=== PATIENT | female | born 1945 | race Caucasian/White ===

== ENCOUNTER 2017-09-29 09:28 | Inpatient (IN) | payer OTHER ==
[~2017-09-29] VITALS: Ht 157.5 cm; Wt 72.6 kg
[~2017-09-29 09:28] MED LIST: AMOX1TAB12 PO; AMOX1TAB5 PO; ATENOLOL25 MG PO; AVALIDE 300-12.1 TA1 PO; BUDESONIDE; CARDIZEM30 MG PO; COZAAR50 MG; DILTIAZEM HCL30 MG PO; FOLIC ACID1 MG PO; HYZAAR 100-121 UDTAB; HYZAAR 100-121 UDTAB PO; IMDUR30 MG; IMDUR30 MG PO; INTEGRA CAPSUL1 EACH PO; INTEGRA F CAPS1 EACH PO; LEVAQUIN750 MG PO; MUCINEX D1 TAB.SR . PO; Neurin-Sl Tablet Sl SL; Neurontin PO; ORPH100T PO; PREVACID15 MG; PRILOSEC20 MG PO; PROTONIX20 MG; PROTONIX20 MG PO; PROTONIX40 MG PO; QUESTRAN PACKET4 GM PO; SINGULAIR 10MG10 MG PO; SINGULAIR10 MG PO; TESSALON PERLE100 M1 PO; TRAM1TAB98 PO; ULTRACET PO; ULTRAM50 MG PO; ZITHROMAX PO; ZITHROMAX TRI-500 MG PO; ZOVIRAX15 GM TP; ZYRTEC10 M3 PO; [UNRECOGNIZED DRUG - OTHER]; [UNRECOGNIZED DRUG - OTHER]; [UNRECOGNIZED DRUG - OTHER]; [UNRECOGNIZED DRUG - OTHER]; [UNRECOGNIZED DRUG - REMARK]
== END 2017-10-01 12:43 | disposition home or self-care (01) | DRG 378 ==
LOC: ER 09:28 → MEDI 15:20
PROC: 30233N1 Transfusion of Nonautologous Red Blood Cells into Peripheral Vein, Percutaneous Approach (ICD-10-PCS; principal; 2017-09-30)
PROC: 3E0F7GC Introduction of Other Therapeutic Substance into Respiratory Tract, Via Natural or Artificial Opening (ICD-10-PCS; 2017-09-30)
DX: K55.21 Angiodysplasia of colon with hemorrhage (principal); J45.31 Mild persistent asthma with (acute) exacerbation; D50.0 Iron deficiency anemia secondary to blood loss (chronic); D69.59 Other secondary thrombocytopenia; B18.2 Chronic viral hepatitis C; K74.69 Other cirrhosis of liver; I10 Essential (primary) hypertension

== ENCOUNTER 2017-10-06 11:45 | Outpatient (CLI) | payer OTHER | END 2017-10-06 11:51 | disposition home or self-care (01) | LOC: LAB 11:45 | DX: D50.0 Iron deficiency anemia secondary to blood loss (chronic) (principal); D51.8 Other vitamin B12 deficiency anemias; D69.49 Other primary thrombocytopenia; B18.2 Chronic viral hepatitis C; K74.69 Other cirrhosis of liver; M81.0 Age-related osteoporosis without current pathological fracture; M19.90 Unspecified osteoarthritis, unspecified site; D53.8 Other specified nutritional anemias; D50.8 Other iron deficiency anemias; I10 Essential (primary) hypertension ==

== ENCOUNTER 2017-10-19 10:11 | Emergency (ER) | payer OTHER ==
[~2017-10-19] VITALS: Ht 157.5 cm; Wt 72.6 kg
== END 2017-10-19 15:29 | disposition home or self-care (01) ==
LOC: ER 10:11
DX: J06.9 Acute upper respiratory infection, unspecified (principal); J00 Acute nasopharyngitis [common cold]; R06.02 Shortness of breath; J11.1 Influenza due to unidentified influenza virus with other respiratory manifestations

== ENCOUNTER → 2017-10-23 | Emergency (ER) | payer OTHER ==
[~2017-10-23] VITALS: Ht 157.5 cm; Wt 72.6 kg
== END | disposition left against medical advice (07) ==
LOC: ER 17:22
DX: Z53.20 Procedure and treatment not carried out because of patient's decision for unspecified reasons (principal)

== ENCOUNTER 2017-11-14 08:43 | Emergency (ER) | payer OTHER ==
[~2017-11-14] VITALS: Ht 157.5 cm; Wt 72.6 kg
== END 2017-11-14 12:32 ==
LOC: ER 08:43
DX: J45.901 Unspecified asthma with (acute) exacerbation (principal)

== ENCOUNTER 2017-12-22 12:42 | Inpatient (IN) | payer OTHER ==
[~2017-12-22] VITALS: Ht 154.9 cm; Wt 72.6 kg
== END 2017-12-23 14:10 | disposition home or self-care (01) | DRG 379 ==
LOC: ER 12:42 → MEDJ 20:57
PROC: 30233N1 Transfusion of Nonautologous Red Blood Cells into Peripheral Vein, Percutaneous Approach (ICD-10-PCS; principal; 2017-12-22)
DX: K92.2 Gastrointestinal hemorrhage, unspecified (principal); D50.0 Iron deficiency anemia secondary to blood loss (chronic); K74.69 Other cirrhosis of liver; B19.20 Unspecified viral hepatitis C without hepatic coma; I95.89 Other hypotension

== ENCOUNTER 2018-01-30 10:23 | Outpatient (CLI) | payer OTHER | END 2018-01-30 13:03 | disposition home or self-care (01) | LOC: LAB 10:23 | DX: D50.0 Iron deficiency anemia secondary to blood loss (chronic) (principal); D51.8 Other vitamin B12 deficiency anemias; D69.49 Other primary thrombocytopenia; B18.2 Chronic viral hepatitis C; K74.69 Other cirrhosis of liver; M81.0 Age-related osteoporosis without current pathological fracture; M19.90 Unspecified osteoarthritis, unspecified site; D53.8 Other specified nutritional anemias; D50.8 Other iron deficiency anemias; I10 Essential (primary) hypertension ==

== ENCOUNTER 2018-03-03 10:31 | Outpatient (CLI) | payer OTHER | END 2018-03-03 10:41 | disposition home or self-care (01) | LOC: MAMO-SONO 10:31 | DX: Z12.31 Encounter for screening mammogram for malignant neoplasm of breast (principal); Z87.898 Personal history of other specified conditions; N64.4 Mastodynia ==

== ENCOUNTER → 2018-03-03 | Emergency (ER) | payer OTHER ==
[~2018-03-03] VITALS: Ht 152.4 cm; Wt 74.8 kg
== END | disposition home or self-care (01) ==
LOC: ER 12:14
DX: K62.5 Hemorrhage of anus and rectum (principal); E86.0 Dehydration

== ENCOUNTER → 2018-05-18 | Outpatient (CLI) | payer OTHER ==
[~2018-05-18] MED LIST changes: +METOPROLOL SUCC25 MG PO; +SYNTHROID50 MCG PO
== END | disposition home or self-care (01) ==
LOC: LAB 08:07
DX: R73.09 Other abnormal glucose (principal); I10 Essential (primary) hypertension; E03.8 Other specified hypothyroidism

== ENCOUNTER 2018-06-01 07:55 | Inpatient (IN) | payer OTHER ==
[~2018-06-01] VITALS: Ht 157.5 cm; Wt 77.1 kg
[~2018-06-01 07:55] MED LIST changes: -METOPROLOL SUCC25 MG PO; -SYNTHROID50 MCG PO
[2018-06-01] MEDS ORDERED: METOPROLOL SUCC25 MG PO (08:09)
[2018-06-01] MEDS ORDERED: SYNTHROID50 MCG PO (08:10)
== END 2018-06-07 09:59 | disposition left against medical advice (07) | DRG 377 ==
LOC: ER 07:55 → MEDJ 11:36 → SEC-K 11:36 → MEDJ 13:23 → ICU-2 13:58 → MEDI 06-03 11:14
PROC: 30233N1 Transfusion of Nonautologous Red Blood Cells into Peripheral Vein, Percutaneous Approach (ICD-10-PCS; principal; 2018-06-01)
PROC: BW25Y0Z Computerized Tomography (CT Scan) of Chest, Abdomen and Pelvis using Other Contrast, Unenhanced and Enhanced (ICD-10-PCS; 2018-06-01)
PROC: 0DB68ZX Excision of Stomach, Via Natural or Artificial Opening Endoscopic, Diagnostic (ICD-10-PCS; 2018-06-02)
PROC: CD171ZZ Planar Nuclear Medicine Imaging of Gastrointestinal Tract using Technetium 99m (Tc-99m) (ICD-10-PCS; 2018-06-02)
PROC: 0DBN8ZX Excision of Sigmoid Colon, Via Natural or Artificial Opening Endoscopic, Diagnostic (ICD-10-PCS; 2018-06-03)
PROC: 3E0F7GC Introduction of Other Therapeutic Substance into Respiratory Tract, Via Natural or Artificial Opening (ICD-10-PCS; 2018-06-03)
PROC: 4A033R1 Measurement of Arterial Saturation, Peripheral, Percutaneous Approach (ICD-10-PCS; 2018-06-04)
PROC: 4A12X4Z Monitoring of Cardiac Electrical Activity, External Approach (ICD-10-PCS; 2018-06-04)
PROC: 5A09457 Assistance with Respiratory Ventilation, 24-96 Consecutive Hours, Continuous Positive Airway Pressure (ICD-10-PCS; 2018-06-04)
PROC: BW40ZZZ Ultrasonography of Abdomen (ICD-10-PCS; 2018-06-05)
DX: K55.21 Angiodysplasia of colon with hemorrhage (principal); R57.1 Hypovolemic shock; D62 Acute posthemorrhagic anemia; R78.81 Bacteremia; N39.0 Urinary tract infection, site not specified; J98.11 Atelectasis; K74.69 Other cirrhosis of liver; B18.2 Chronic viral hepatitis C; D69.59 Other secondary thrombocytopenia; I10 Essential (primary) hypertension; J45.998 Other asthma; E86.0 Dehydration; B95.61 Methicillin susceptible Staphylococcus aureus infection as the cause of diseases classified elsewhere; B96.29 Other Escherichia coli [E. coli] as the cause of diseases classified elsewhere; Z16.12 Extended spectrum beta lactamase (ESBL) resistance; K63.5 Polyp of colon; R06.02 Shortness of breath

== ENCOUNTER 2018-06-23 08:07 | Outpatient (CLI) | payer OTHER ==
[~2018-06-23 08:07] MED LIST changes: +METOPROLOL SUCC25 MG PO; +SYNTHROID50 MCG PO
== END 2018-06-23 08:19 | disposition home or self-care (01) ==
LOC: LAB 08:07
DX: D50.0 Iron deficiency anemia secondary to blood loss (chronic) (principal)

== ENCOUNTER 2018-07-20 07:42 | Outpatient (CLI) | payer OTHER | END 2018-07-20 19:18 | disposition home or self-care (01) | LOC: LAB 07:42 | DX: D50.0 Iron deficiency anemia secondary to blood loss (chronic) (principal); D51.8 Other vitamin B12 deficiency anemias; D69.49 Other primary thrombocytopenia; B18.2 Chronic viral hepatitis C; K74.69 Other cirrhosis of liver; M81.0 Age-related osteoporosis without current pathological fracture; M19.90 Unspecified osteoarthritis, unspecified site; D53.8 Other specified nutritional anemias; D50.8 Other iron deficiency anemias; I10 Essential (primary) hypertension ==

== ENCOUNTER 2018-09-02 09:36 | Inpatient (IN) | payer OTHER ==
[~2018-09-02] VITALS: Ht 157.5 cm; Wt 65.8 kg
== END 2018-09-07 16:26 | disposition home or self-care (01) | DRG 378 ==
LOC: ER 09:36 → MEDI 09-03 14:24
PROC: 4A12X4Z Monitoring of Cardiac Electrical Activity, External Approach (ICD-10-PCS; principal; 2018-09-03)
PROC: 3E0F7GC Introduction of Other Therapeutic Substance into Respiratory Tract, Via Natural or Artificial Opening (ICD-10-PCS; 2018-09-03)
PROC: 30233N1 Transfusion of Nonautologous Red Blood Cells into Peripheral Vein, Percutaneous Approach (ICD-10-PCS; 2018-09-03)
DX: K31.811 Angiodysplasia of stomach and duodenum with bleeding (principal); D61.818 Other pancytopenia; J45.901 Unspecified asthma with (acute) exacerbation; K62.5 Hemorrhage of anus and rectum; K74.69 Other cirrhosis of liver; B18.2 Chronic viral hepatitis C; J44.9 Chronic obstructive pulmonary disease, unspecified; D69.49 Other primary thrombocytopenia; I10 Essential (primary) hypertension; D50.0 Iron deficiency anemia secondary to blood loss (chronic)

== ENCOUNTER 2018-11-11 08:54 | Outpatient (CLI) | payer OTHER | END 2018-11-11 13:09 | disposition home or self-care (01) | LOC: LAB 08:54 | DX: D47.3 Essential (hemorrhagic) thrombocythemia (principal) ==

== ENCOUNTER 2019-01-03 11:50 | Outpatient (CLI) | payer OTHER | END 2019-01-03 12:31 | disposition home or self-care (01) | LOC: LAB 11:50 | DX: D50.0 Iron deficiency anemia secondary to blood loss (chronic) (principal); D51.8 Other vitamin B12 deficiency anemias; D69.49 Other primary thrombocytopenia; B18.2 Chronic viral hepatitis C; K74.69 Other cirrhosis of liver; M81.0 Age-related osteoporosis without current pathological fracture; M19.90 Unspecified osteoarthritis, unspecified site; D53.8 Other specified nutritional anemias; D50.8 Other iron deficiency anemias; I10 Essential (primary) hypertension ==

== ENCOUNTER 2019-01-14 08:17 | Outpatient (CLI) | payer OTHER | END 2019-01-14 08:32 | disposition home or self-care (01) | LOC: LAB 08:17 | DX: E03.8 Other specified hypothyroidism (principal); R73.09 Other abnormal glucose; I10 Essential (primary) hypertension; E55.9 Vitamin D deficiency, unspecified; Z12.11 Encounter for screening for malignant neoplasm of colon ==

== ENCOUNTER 2019-01-16 08:06 | Inpatient (IN) | payer OTHER ==
[~2019-01-16] VITALS: Ht 61 cm; Wt 5.0 kg
--- NOTE | 2019-01-16 08:46 | NUR ---
PACIENTE ALERTA Y ORIENTADA X3, CON BUEN PATRON RESPIRATORIO Y SIGNOS VITALES ESTABLES, REFIERE ISRRAEL DOLOR EN EL ABDOMEN EN EL LADO DERECHO, DOLOR DE ACEBZA Y NAUSEAS. SE COLOCA EN STEFFANIE EN ESPERA DE SER EVALUADA POR .
--- NOTE | 2019-01-16 09:09 | NUR ---
SE ORIENTA PTE SOBRE TRATAMIENTO. SE KEON MUESTRAS DE SNAGRE Y SE CNALIZA PERIFERALMENTE BAJO MEDIDAS ASEPTICAS POR RN BHANU QUIEN ADMINISTRA MEDICMAENTOS ORDENASO. SE NOTIFICA APERSONAL DE SONO PARA ESTUDIO PENDIENTE. PTE PENDIENTE A RE-EVALAUCION POR MEDICO DE TURNO.
--- NOTE | 2019-01-16 15:00 | NUR ---
PACIENTE ALERTA Y ORIENTADA X3. EN STEFFANIE CON BARANDAS ELEVADAS. RECIBIENDO 0.9% NSS DE 1,000ML BAJANDO A 100ML/HR. PENDIENTE VISITTA DE DRA. Ag REN. SE MANTIENE BAJO OBSERVACION POR CAMBIOS SIGNIFICATIVOS.
[2019-01-21] MEDS ORDERED: Ursodiol 300MG CAPSU PO (14:33)
[2019-01-21] MEDS ORDERED: SYNTHROID50 MCG PO (14:33)
== END 2019-01-21 17:44 | disposition home or self-care (01) | DRG 440 ==
LOC: ER 08:06 → MEDJ 19:11
PROVIDERS: ADMIT Internal Medicine
PROC: BW40ZZZ Ultrasonography of Abdomen (ICD-10-PCS; 2019-01-16)
PROC: BF37ZZZ Magnetic Resonance Imaging (MRI) of Pancreas (ICD-10-PCS; 2019-01-18)
PROC: 0FC98ZZ Extirpation of Matter from Common Bile Duct, Via Natural or Artificial Opening Endoscopic (ICD-10-PCS; principal; 2019-01-20)
PROC: 0F798ZZ Dilation of Common Bile Duct, Via Natural or Artificial Opening Endoscopic (ICD-10-PCS; 2019-01-20)
DX: K85.10 Biliary acute pancreatitis without necrosis or infection (principal); K80.70 Calculus of gallbladder and bile duct without cholecystitis without obstruction; D69.49 Other primary thrombocytopenia; B18.2 Chronic viral hepatitis C; K74.69 Other cirrhosis of liver; J44.9 Chronic obstructive pulmonary disease, unspecified; J45.998 Other asthma; E03.8 Other specified hypothyroidism; I10 Essential (primary) hypertension; E78.49 Other hyperlipidemia; K64.4 Residual hemorrhoidal skin tags; K25.7 Chronic gastric ulcer without hemorrhage or perforation

== ENCOUNTER → 2019-01-26 10:46 | Outpatient (CLI) | payer OTHER ==
[~2019-01-26 10:46] MED LIST changes: +Ursodiol 300MG CAPSU PO
== END | disposition home or self-care (01) ==
LOC: LAB 10:46
DX: R73.09 Other abnormal glucose (principal); E03.8 Other specified hypothyroidism; I10 Essential (primary) hypertension; E55.9 Vitamin D deficiency, unspecified; Z12.11 Encounter for screening for malignant neoplasm of colon

== ENCOUNTER 2019-05-27 08:02 | Outpatient (CLI) | payer OTHER | END 2019-05-27 08:21 | disposition home or self-care (01) | LOC: LAB 08:02 | DX: R73.09 Other abnormal glucose (principal); Z12.11 Encounter for screening for malignant neoplasm of colon; I10 Essential (primary) hypertension; E03.8 Other specified hypothyroidism; E55.9 Vitamin D deficiency, unspecified ==

== ENCOUNTER 2019-05-31 09:49 | Outpatient (CLI) | payer OTHER | END 2019-05-31 12:46 | disposition home or self-care (01) | LOC: RAD 09:49 → MAMO-SONO 10:00 → RAD 12:46 | DX: Z12.31 Encounter for screening mammogram for malignant neoplasm of breast (principal); Z87.898 Personal history of other specified conditions; N64.4 Mastodynia; R10.2 Pelvic and perineal pain ==

== ENCOUNTER → 2019-09-02 07:31 | Outpatient (CLI) | payer OTHER | END | disposition home or self-care (01) | LOC: LAB 07:31 | DX: K74.60 Unspecified cirrhosis of liver (principal) ==

== ENCOUNTER 2019-09-22 08:06 | Outpatient (CLI) | payer OTHER | END 2019-09-22 08:09 | disposition home or self-care (01) | LOC: SONOGRAMA 08:06 → MAMO-SONO 08:15 | DX: K74.60 Unspecified cirrhosis of liver (principal) ==

== ENCOUNTER 2019-10-31 10:09 | Outpatient (CLI) | payer OTHER | END 2019-10-31 10:18 | disposition home or self-care (01) | LOC: LAB 10:09 | DX: D64.89 Other specified anemias (principal); E78.2 Mixed hyperlipidemia; E03.8 Other specified hypothyroidism; E55.9 Vitamin D deficiency, unspecified; E56.8 Deficiency of other vitamins; R73.09 Other abnormal glucose ==

== ENCOUNTER 2019-12-01 11:12 | Outpatient (CLI) | payer OTHER | END 2019-12-01 12:35 | disposition home or self-care (01) | LOC: NUCLEAR 11:12 | DX: I20.1 Angina pectoris with documented spasm (principal) | CPT/HCPCS: 78452; 93017; A9500; J1250 ==

== ENCOUNTER → 2020-02-29 07:58 | Outpatient (CLI) | payer OTHER | END | disposition home or self-care (01) | LOC: LAB 07:58 | PROVIDERS: ATTEND Internal Medicine Hematology & Oncology | DX: D50.0 Iron deficiency anemia secondary to blood loss (chronic) (principal); D51.8 Other vitamin B12 deficiency anemias; D69.49 Other primary thrombocytopenia; B18.2 Chronic viral hepatitis C; K74.69 Other cirrhosis of liver; M81.0 Age-related osteoporosis without current pathological fracture; M19.90 Unspecified osteoarthritis, unspecified site; D53.8 Other specified nutritional anemias; I10 Essential (primary) hypertension; D50.8 Other iron deficiency anemias; D68.8 Other specified coagulation defects; D69.1 Qualitative platelet defects; E55.9 Vitamin D deficiency, unspecified ==

== ENCOUNTER 2020-03-09 13:01 | Outpatient (CLI) | payer OTHER | END 2020-03-09 13:14 | disposition home or self-care (01) | LOC: NUCLEAR 13:01 | PROVIDERS: ATTEND Internal Medicine Hematology & Oncology | DX: M81.0 Age-related osteoporosis without current pathological fracture (principal); D50.0 Iron deficiency anemia secondary to blood loss (chronic); D51.8 Other vitamin B12 deficiency anemias; D69.49 Other primary thrombocytopenia; K74.69 Other cirrhosis of liver; B18.2 Chronic viral hepatitis C; M19.90 Unspecified osteoarthritis, unspecified site; D53.8 Other specified nutritional anemias ==

== ENCOUNTER → 2020-04-07 08:47 | Outpatient (CLI) | payer OTHER | END | disposition home or self-care (01) | LOC: RAD 08:47 | PROVIDERS: ATTEND General Practice | DX: M25.512 Pain in left shoulder (principal); M25.511 Pain in right shoulder ==

== ENCOUNTER 2020-06-28 10:34 | Emergency (ER) | payer OTHER ==
[~2020-06-28] VITALS: Ht 157.5 cm; Wt 72.6 kg
== END 2020-06-28 13:06 | disposition home or self-care (01) ==
LOC: ER 10:34
DX: M25.511 Pain in right shoulder (principal); M25.411 Effusion, right shoulder

== ENCOUNTER 2020-07-04 09:21 | Outpatient (CLI) | payer OTHER ==
[2020-07-11] MEDS ORDERED: PULM IH (13:44)
[2020-07-11] MEDS ORDERED: ALBUTEROL IN (13:44)
[2020-07-11] MEDS ORDERED: MULTIVITAMINS1 EAC9 PO (13:45)
== END 2020-07-04 09:32 | disposition home or self-care (01) ==
LOC: EKG 09:21
PROVIDERS: ATTEND Surgery
DX: I70.0 Atherosclerosis of aorta (principal); I10 Essential (primary) hypertension; R10.84 Generalized abdominal pain; R19.4 Change in bowel habit; K64.2 Third degree hemorrhoids; K52.89 Other specified noninfective gastroenteritis and colitis; K62.3 Rectal prolapse; K62.2 Anal prolapse

== ENCOUNTER 2020-07-12 09:06 | Inpatient (IN) | payer OTHER ==
[~2020-07-12] VITALS: Ht 157.5 cm; Wt 74.4 kg
[~2020-07-12 09:06] MED LIST changes: +ALBUTEROL IN; +MULTIVITAMINS1 EAC9 PO; +PULM IH
[2020-07-20] MEDS ORDERED: ABANEU-SL TABL1 EACH (08:11)
[2020-07-20] MEDS ORDERED: ALBUTEROL2.5 MG/3 M (08:14)
[2020-07-20] MEDS ORDERED: PULMICORT FLEX90 MCG (08:15)
[2020-07-20] MEDS ORDERED: CETIRIZINE HCL10 MG (08:16)
[2020-07-20] MEDS ORDERED: LORATADINE10 MG (08:17)
[2020-07-20] MEDS ORDERED: ISOSORBIDE MONO60 M2 (08:17)
[2020-07-20] MEDS ORDERED: OXYC1TAB9 (08:17)
[2020-07-20] MEDS ORDERED: PANTOPRAZOLE SO40 MG PO (08:46)
[2020-07-20] MEDS ORDERED: FLAGYL500MG PO (08:47)
[2020-07-20] MEDS ORDERED: LEVOFLOXACIN500 MG PO (08:47)
== END 2020-07-20 08:58 | disposition home or self-care (01) | DRG 349 ==
LOC: SURH 07-16 07:00 → O/R 07-19 08:39 → SURH 07-19 10:15
PROVIDERS: ADMIT Surgery; ATTEND Surgery
PROC: 0DJD8ZZ Inspection of Lower Intestinal Tract, Via Natural or Artificial Opening Endoscopic (ICD-10-PCS; 2020-07-19)
PROC: 0DBP7ZZ Excision of Rectum, Via Natural or Artificial Opening (ICD-10-PCS; principal; 2020-07-19 10:15)
DX: K62.3 Rectal prolapse (principal)

== ENCOUNTER 2020-08-11 06:39 | Emergency (ER) | payer OTHER ==
[~2020-08-11] VITALS: Ht 157.5 cm; Wt 68.0 kg
[~2020-08-11 06:39] MED LIST changes: +ABANEU-SL TABL1 EACH; +ALBUTEROL2.5 MG/3 M; +CETIRIZINE HCL10 MG; +FLAGYL500MG PO; +ISOSORBIDE MONO60 M2; +LEVOFLOXACIN500 MG PO; +LORATADINE10 MG; +OXYC1TAB9; +PANTOPRAZOLE SO40 MG PO; +PULMICORT FLEX90 MCG
== END 2020-08-11 10:57 | disposition home or self-care (01) ==
LOC: ER 06:39
DX: G89.11 Acute pain due to trauma (principal); M54.5 Low back pain; Z03.818 Encounter for observation for suspected exposure to other biological agents ruled out

== ENCOUNTER → 2020-10-12 | Emergency (ER) | payer OTHER ==
[~2020-10-12] VITALS: Ht 152.4 cm; Wt 74.8 kg
[~2020-10-12] MED LIST changes: +PERCOCET 5-3251 EACH PO
== END | disposition home or self-care (01) ==
LOC: ER 08:43
DX: S40.021A Contusion of right upper arm, initial encounter (principal); M24.411 Recurrent dislocation, right shoulder; W07.XXXA Fall from chair, initial encounter; Y93.89 Activity, other specified; Y92.017 Garden or yard in single-family (private) house as the place of occurrence of the external cause; Y99.8 Other external cause status

== ENCOUNTER 2020-11-09 08:08 | Emergency (ER) | payer OTHER ==
[~2020-11-09] VITALS: Ht 157.5 cm; Wt 76.2 kg
[2020-11-09] MEDS ORDERED: LEVOFLOXACIN500 MG PO (10:40)
[2020-11-09] MEDS ORDERED: TESSALON PERLE100 M1 PO (10:50)
[2020-11-26] MEDS ORDERED: LEVOFLOXACIN250 MG PO (13:16)
== END 2020-11-09 12:16 | disposition home or self-care (01) ==
LOC: ER 08:08
DX: B34.9 Viral infection, unspecified (principal); N39.0 Urinary tract infection, site not specified; B96.29 Other Escherichia coli [E. coli] as the cause of diseases classified elsewhere; R31.29 Other microscopic hematuria; Z03.818 Encounter for observation for suspected exposure to other biological agents ruled out; R05 Cough

== ENCOUNTER → 2020-11-26 | Emergency (ER) | payer OTHER ==
[~2020-11-26] VITALS: Ht 157.5 cm; Wt 74.4 kg
[~2020-11-26] MED LIST changes: +LEVOFLOXACIN250 MG PO
== END | disposition home or self-care (01) ==
LOC: ER 09:03
DX: N39.0 Urinary tract infection, site not specified (principal); B96.29 Other Escherichia coli [E. coli] as the cause of diseases classified elsewhere; Z03.818 Encounter for observation for suspected exposure to other biological agents ruled out

== ENCOUNTER → 2021-02-21 07:42 | Outpatient (CLI) | payer OTHER | END | disposition home or self-care (01) | LOC: RAD 07:42 → LAB 07:42 | PROVIDERS: ATTEND General Practice | DX: D64.9 Anemia, unspecified (principal); E78.2 Mixed hyperlipidemia; R73.09 Other abnormal glucose; E03.9 Hypothyroidism, unspecified; E56.9 Vitamin deficiency, unspecified; E55.9 Vitamin D deficiency, unspecified; I11.9 Hypertensive heart disease without heart failure; Z12.11 Encounter for screening for malignant neoplasm of colon; J44.9 Chronic obstructive pulmonary disease, unspecified ==

== ENCOUNTER 2021-10-10 08:43 | Emergency (ER) | payer OTHER ==
[~2021-10-10] VITALS: Ht 154.9 cm; Wt 74.8 kg
== END 2021-10-10 11:50 | disposition home or self-care (01) ==
LOC: ER 08:43
DX: J45.998 Other asthma (principal)

== ENCOUNTER 2021-10-22 09:20 | Emergency (ER) | payer OTHER ==
[~2021-10-22] VITALS: Ht 157.5 cm; Wt 74.8 kg
[2021-10-22] MEDS ORDERED: DICLOFENAC SOD100 GM (09:53)
[2021-10-22] MEDS ORDERED: PEPCID AC20 MG PO (12:49)
== END 2021-10-22 13:12 | disposition home or self-care (01) ==
LOC: ER 09:20
DX: K29.70 Gastritis, unspecified, without bleeding (principal); I10 Essential (primary) hypertension; Z88.6 Allergy status to analgesic agent

== ENCOUNTER 2021-11-28 08:26 | Outpatient (CLI) | payer OTHER ==
[~2021-11-28 08:26] MED LIST changes: +DICLOFENAC SOD100 GM; +PEPCID AC20 MG PO
== END 2021-11-28 08:47 | disposition home or self-care (01) ==
LOC: LAB 08:26
PROVIDERS: ATTEND Internal Medicine Hematology & Oncology
DX: D50.8 Other iron deficiency anemias (principal); R79.9 Abnormal finding of blood chemistry, unspecified; I10 Essential (primary) hypertension; R74.02 Elevation of levels of lactic acid dehydrogenase [LDH]; K76.89 Other specified diseases of liver; D51.8 Other vitamin B12 deficiency anemias; E55.9 Vitamin D deficiency, unspecified; D68.8 Other specified coagulation defects; D69.1 Qualitative platelet defects; D50.0 Iron deficiency anemia secondary to blood loss (chronic); D51.0 Vitamin B12 deficiency anemia due to intrinsic factor deficiency; D69.49 Other primary thrombocytopenia; B18.2 Chronic viral hepatitis C; K74.69 Other cirrhosis of liver; M81.0 Age-related osteoporosis without current pathological fracture; M19.90 Unspecified osteoarthritis, unspecified site; D53.8 Other specified nutritional anemias

== ENCOUNTER 2022-03-20 07:25 | Outpatient (CLI) | payer OTHER | END 2022-03-20 07:32 | disposition home or self-care (01) | LOC: LAB 07:25 | PROVIDERS: ATTEND Internal Medicine Hematology & Oncology | DX: D50.8 Other iron deficiency anemias (principal); D51.3 Other dietary vitamin B12 deficiency anemia; D53.8 Other specified nutritional anemias; D64.9 Anemia, unspecified; D55.9 Anemia due to enzyme disorder, unspecified; I77.6 Arteritis, unspecified ==

== ENCOUNTER 2022-05-07 15:19 | Emergency (ER) | payer OTHER ==
[~2022-05-07] VITALS: Ht 157.5 cm; Wt 72.6 kg
[2022-05-07] MEDS ORDERED: PEPCID AC20 MG PO (18:09)
== END 2022-05-07 18:47 | disposition home or self-care (01) ==
LOC: ER 15:19
DX: K52.9 Noninfective gastroenteritis and colitis, unspecified (principal); K29.70 Gastritis, unspecified, without bleeding; Z88.6 Allergy status to analgesic agent; Z20.822 Contact with and (suspected) exposure to COVID-19

== ENCOUNTER 2022-05-23 08:44 | Outpatient (CLI) | payer OTHER | END 2022-05-23 08:45 | disposition home or self-care (01) | LOC: LAB 08:44 | PROVIDERS: ATTEND Internal Medicine Hematology & Oncology | DX: D69.6 Thrombocytopenia, unspecified (principal); D63.8 Anemia in other chronic diseases classified elsewhere ==

== ENCOUNTER 2022-07-03 07:39 | Emergency (ER) | payer OTHER ==
[~2022-07-03] VITALS: Ht 157.5 cm; Wt 74.4 kg
== END 2022-07-03 10:21 | disposition home or self-care (01) ==
LOC: ER 07:39
DX: G43.909 Migraine, unspecified, not intractable, without status migrainosus (principal); I10 Essential (primary) hypertension; J45.909 Unspecified asthma, uncomplicated; Z88.6 Allergy status to analgesic agent

== ENCOUNTER 2022-08-24 11:29 | Emergency (ER) | payer OTHER ==
[~2022-08-24] VITALS: Ht 157.5 cm; Wt 73.5 kg
== END 2022-08-24 17:54 | disposition home or self-care (01) ==
LOC: ER 11:29
DX: S82.424A Nondisplaced transverse fracture of shaft of right fibula, initial encounter for closed fracture (principal); S70.11XA Contusion of right thigh, initial encounter; W18.31XA Fall on same level due to stepping on an object, initial encounter; Y93.9 Activity, unspecified; Y92.018 Other place in single-family (private) house as the place of occurrence of the external cause; Y99.9 Unspecified external cause status; I10 Essential (primary) hypertension; Z88.6 Allergy status to analgesic agent; Z88.8 Allergy status to other drugs, medicaments and biological substances

== ENCOUNTER 2022-09-11 08:27 | Emergency (ER) | payer OTHER ==
[~2022-09-11] VITALS: Ht 154.9 cm; Wt 74.4 kg
== END 2022-09-11 10:23 | disposition home or self-care (01) ==
LOC: ER 08:27
DX: M17.11 Unilateral primary osteoarthritis, right knee (principal); Z88.6 Allergy status to analgesic agent

== ENCOUNTER 2022-11-14 09:02 | Emergency (ER) | payer OTHER ==
[~2022-11-14] VITALS: Ht 157.5 cm; Wt 73.5 kg
== END 2022-11-14 10:20 | disposition home or self-care (01) ==
LOC: ER 09:02
DX: M25.561 Pain in right knee (principal); Z88.6 Allergy status to analgesic agent; Z88.8 Allergy status to other drugs, medicaments and biological substances; I10 Essential (primary) hypertension

== ENCOUNTER 2022-12-09 08:23 | Emergency (ER) | payer OTHER ==
[~2022-12-09] VITALS: Ht 149.9 cm; Wt 81.6 kg
== END 2022-12-09 12:10 | disposition home or self-care (01) ==
LOC: ER 08:23
DX: J45.901 Unspecified asthma with (acute) exacerbation (principal); I10 Essential (primary) hypertension; Z88.6 Allergy status to analgesic agent; D69.6 Thrombocytopenia, unspecified; B18.2 Chronic viral hepatitis C; F41.9 Anxiety disorder, unspecified; Z20.822 Contact with and (suspected) exposure to COVID-19

== ENCOUNTER 2022-12-25 08:09 | Emergency (ER) | payer OTHER ==
[~2022-12-25] VITALS: Ht 157.5 cm; Wt 74.4 kg
[2022-12-25] MEDS ORDERED: BENZONATATE200 M1 PO (11:09)
[2022-12-25] MEDS ORDERED: NORFLEX100MG PO (11:09)
== END 2022-12-25 12:00 | disposition home or self-care (01) ==
LOC: ER 08:09
DX: J45.901 Unspecified asthma with (acute) exacerbation (principal); M54.9 Dorsalgia, unspecified; Z88.6 Allergy status to analgesic agent; Z20.822 Contact with and (suspected) exposure to COVID-19

== ENCOUNTER 2023-03-05 08:42 | Outpatient (CLI) | payer OTHER ==
[~2023-03-05 08:42] MED LIST changes: +BENZONATATE200 M1 PO; +NORFLEX100MG PO
== END 2023-03-05 08:43 | disposition home or self-care (01) ==
LOC: LAB 08:42
PROVIDERS: ATTEND Internal Medicine Cardiovascular Disease
DX: I10 Essential (primary) hypertension (principal); E11.9 Type 2 diabetes mellitus without complications; E03.9 Hypothyroidism, unspecified; E78.2 Mixed hyperlipidemia; E55.9 Vitamin D deficiency, unspecified; K92.0 Hematemesis; Z12.11 Encounter for screening for malignant neoplasm of colon

== ENCOUNTER 2023-03-10 13:02 | Outpatient (CLI) | payer OTHER | END 2023-03-10 13:05 | disposition home or self-care (01) | LOC: LAB 13:02 | PROVIDERS: ATTEND Internal Medicine Cardiovascular Disease | DX: E03.9 Hypothyroidism, unspecified (principal); I10 Essential (primary) hypertension; E11.9 Type 2 diabetes mellitus without complications; E78.2 Mixed hyperlipidemia; E55.9 Vitamin D deficiency, unspecified; K92.0 Hematemesis; Z12.11 Encounter for screening for malignant neoplasm of colon ==

== ENCOUNTER 2023-04-17 09:28 | Emergency (ER) | payer OTHER ==
[~2023-04-17] VITALS: Ht 154.9 cm; Wt 73.9 kg
== END 2023-04-17 13:23 | disposition home or self-care (01) ==
LOC: ER 09:28
DX: R60.0 Localized edema (principal); I10 Essential (primary) hypertension; Z88.6 Allergy status to analgesic agent; Z88.8 Allergy status to other drugs, medicaments and biological substances

== ENCOUNTER 2023-08-19 09:24 | Emergency (ER) | payer OTHER ==
[~2023-08-19] VITALS: Ht 157.5 cm; Wt 72.6 kg
[~2023-08-19 09:24] MED LIST changes: +CARDIZEM60 MG PO
[2023-08-19 10:34] LABS: MEAN CORPUSCULAR HEMOGLOBIN 33.5 pg (27.00-32.0); MEAN CORPUSCULAR HGB CONC 34.5 g/dl (32.0-36.0); RED CELL DISTRIBUTION WIDTH 13.7 % (11.5-14.5)
[2023-08-19 10:36] LABS: PLATELET COUNT 77 K/uL (150-450)
[2023-08-19 11:15] LABS: ALBUMIN 2.8 gm/dL (3.4-5.0); BILIRUBIN TOTAL 0.87 mg/dL (0.3-1.2); CALCIUM 9.3 mg/dL (8.5-10.1); CREATININE SERUM 0.98 mg/dL (0.55-1.02); GFR 55.18; GLOBULINA 4.4 G/DL (2.4-3.5); POTASSIUM 3.87 mEq/L (3.5-5.1); TOTAL PROTEIN 7.2 gm/dL (6.4-8.2)
== END 2023-08-19 14:33 | disposition home or self-care (01) ==
LOC: ER 09:24
PROVIDERS: Emergency Medicine
DX: R11.10 Vomiting, unspecified (principal); R10.13 Epigastric pain; Z88.6 Allergy status to analgesic agent; J45.909 Unspecified asthma, uncomplicated; K21.9 Gastro-esophageal reflux disease without esophagitis; E03.9 Hypothyroidism, unspecified; I10 Essential (primary) hypertension; M54.9 Dorsalgia, unspecified; K29.70 Gastritis, unspecified, without bleeding; D47.3 Essential (hemorrhagic) thrombocythemia
CPT/HCPCS: 36415; 96365; 96366; 99284; J7050

== ENCOUNTER 2024-04-14 06:10 | Inpatient (IN) | payer OTHER ==
[~2024-04-14] VITALS: Ht 152.4 cm; Wt 117.9 kg
[~2024-04-14 06:10] MED LIST changes: +AMIODARONE HCL100 MG PO; +BUDESONIDE0.5 MG/2 M PO; +COZAAR100 MG PO; +HYZAAR 100-12.1 EACH PO; +IPRATROPIU0.2 MG/1 M IH; +ISOSORBIDE MONO60 M2 PO; +LACTULOSE10 GM/152 PO; +LASIX20 MG PO; +LEVOTHYROXINE25 MCG PO; +MEDROL8 MG PO; +MOXIFLOXACIN H400 MG PO; +[UNRECOGNIZED DRUG - OTHER] PO
[2024-04-14] MEDS ORDERED: COZAAR25 MG PO (06:54)
[2024-04-14] MEDS ORDERED: NEURONTIN300 MG PO (06:54)
--- NOTE | 2024-04-14 06:56 | NUR ---
PTE ALERTA Y ORIENTADA X3. SE RECIBE PTE EN COMPANIA DE FAMILIAR Y PARAMEDICOS, QUIENES REFIEREN QUE PTE TIENE LA PIERNA IZQUIERDA, HINCHADA, CALIENTE AL TACTO Y CON DOLOR DESDE HACE 4 ONOFRE, FAMILIAR DE PTE REFIERE QUE TENIA JERALD PARA REALIZARSE ESTUDIO RELACIONADO A LA CONDICION A LA QUE NO FUE. SE KEON SV BP MANUAL 80/40 PUL 130LPM. SE REALIZA EKG EL CUAL SE PRESENTA A . PTE FUE CANALIZADA EN AMBULANCIA CON #20 EN BRAZO IQUIERDO. SE UBICA A PTE EN UNIDAD DE CHEST PAIN.
[2024-04-14] MEDS ORDERED: LEVALBUTEROL HCL 0.63 MG/3 ML SOLUTION IH SCH (07:45)
--- NOTE | 2024-04-14 07:45 | NUR ---
SE RECIBE PACIENTE ALERTA Y ORIENTADA X3 UBICADA EN CAMA #18 DE AREA DE CHEST PAIN CON BARANDAS ELEVADAS Y EN JENNINGS POSICION MAS BAJA POR SEGURIDAD. PACIENTE CONECTADA A TELEMETRIA Y OXIMETRIA DE PULSO, SE OBSERVA ABDOMEN DEPRESIBLE CON PERISTALSIS PRESENTE, PACIENTE CANALIZADA EN BRAZO DERECHO CON ANGIO #20 Y #22 PATENTES LIBRES DE EDEMA Y ERITEMA. PACIENTE FUE EVALUADA POR DR. MACHADO,
[2024-04-14] MEDS ORDERED: LEVALBUTEROL HCL 0.63 MG/3 ML SOLUTION IH ONE (08:20)
[2024-04-14 08:37] LABS: HEMATOCRIT 30.8 % (36.0-45.00); HEMOGLOBIN 10.3 g/dL (12.0-15.00); MEAN CELL VOLUME 92.3 fL (80.00-100.00); MEAN CORPUSCULAR HEMOGLOBIN 30.8 pg (27.00-32.0); MEAN CORPUSCULAR HGB CONC 33.4 g/dl (32.0-36.0); RED BLOOD COUNT 3.34 M/uL (4.00-6.00)
[2024-04-14 08:56] LABS: PLATELET COUNT 60 K/uL (150-450)
[2024-04-14 09:29] LABS: INR 1.75
[2024-04-14 09:31] LABS: ALBUMIN 1.4 gm/dL (3.4-5.0); BILIRUBIN TOTAL 2.42 mg/dL (0.3-1.2); CALCIUM 7.7 mg/dL (8.5-10.1); CREATININE SERUM 1.54 mg/dL (0.55-1.02); GFR 32.66; POTASSIUM 4.34 mEq/L (3.5-5.1); TOTAL PROTEIN 5.4 gm/dL (6.4-8.2)
[2024-04-14 09:38] LABS: PARTIAL THROMBOPLASTIN TIME 47.1 SECONDS (22.0-34.0); PROTHROMBIN TIME 17.6 SECONDS (9.0-11.5)
[2024-04-14 09:39] LABS: RED CELL DISTRIBUTION WIDTH 19.8 % (11.5-14.5)
[2024-04-14] MEDS ORDERED: CEFTRIAXONE SODIUM 1,000 MG VIAL IV ONE (11:00)
[2024-04-14 11:01] LABS: ABG PH 7.445 (7.35-7.45); ABG pCO2 25.5 mmHg (35-45)
[2024-04-14 11:02] LABS: ABG PO2 81.4 mmHg (80-100); BICARBONATE 17.1 mmol/l (23-25); SaO2 96.3 %; Tco2 17.9 mmol/l; o2 21 %
[2024-04-14 11:03] LABS: allen test SATISFACTORY; puncture site RADIAL LEFT
[2024-04-14] MEDS ORDERED: CEFTRIAXONE SODIUM 1,000 MG VIAL ONE (11:05)
[2024-04-14] MEDS ORDERED: NOREPINEPHRINE BITARTRATE 4 MG in DEXTROSE 5 % IN WATER 250 ML IV SCH (11:15)
[2024-04-14] MEDS ORDERED: NOREPINEPHRINE BITARTRATE 1 MG/ML AMPUL IV ONE (11:27)
--- NOTE | 2024-04-14 13:28 | NUR ---
REINALDO ACUDE A ER A REALIZAR ESTUDIO A PACIENTE
[2024-04-14] MEDS ORDERED: ACETAMINOPHEN 500 MG GEL..CAP PO ONE ×2 (15:06→23:29)
--- NOTE | 2024-04-14 15:10 | NUR ---
SE RECIBE PTE FEMINA DE 79 ANOS DE EDAD EN AREA DE "CHEST PAIN" EN LA UNIDAD DE ERMERGENCIAS, LA MISMA SE OBSERVA EN CAMAM BAJA Y BARANDAS ELEVADAS POR JENNINGS SEGURIDAD. SE OBSERVA A PTE RECIBIENDO ASISTENCIA RESPIRTORIA POR CANULA NASAL A 3LIT/MIN LA CUAL REFIERE TOLERAR. LAS EXTREMIDADES SUPERIOIRES SE OBSERVAN LIBRES DE EDEMA Y ERITEMA CON 2 CANALIZACIONES EN BRAZO DERECHO POR LOS CUALES ESTA RECIBIENDO DRIP DE LEVOPHED DE 4MG/250ML BAJANDO @ 15ML/HR. SE OBSERVA PTE CONECTADA A MONITOR CARDIACO Y OXYMETRIA DE PULSO CON VITALES ESTABLES AKIKO JENNINGS CONDICION. SE OBSERVA ABDOMEN DISTENDIDO AL TACTO. PTE CON SONDA URINARIA BAJANDO A GRAVEDAD CON ORINA RECOLECTADA COLOR AMARILLO INTENSO. SE OBSERVAN EXTREMIDADES INFERIOIRES LA PIERNA DERECHA SE ENCUENTRA AL MOMENTO MECCA DE EDEMA Y ERITEMA. NO OBSTANTE, LA PIERNA IZQUIERDA ESTA EDEMATOSA COLOR ROJISA DOLORA AL TACTO Y CON AMPOLLAS DE GR[place]. SE MANTIENE PTE EN OBSERVACION POR CAMBIOS SIGNIFICATIVOS EN JENNINGS CONDICION EN ESPERA DE QUE SEA CONSULTADA POR INTERNISTA.
[2024-04-14] MEDS ORDERED: MEPERIDINE HCL 25 MG/ML AMPUL IV ONE (15:15)
[2024-04-14] MEDS ORDERED: MEROPENEM 500 MG/VIAL VIAL IV SCH (17:29)
[2024-04-14] MEDS ORDERED: 0.9 % SODIUM CHLORIDE 500 ML IV ONE (17:30)
[2024-04-14] MEDS ORDERED: ACETAMINOPHEN 500 MG GEL..CAP PO PRN (17:30)
[2024-04-14] MEDS ORDERED: AMIODARONE HCL 50 MG/ML AMPUL IV ONE ×2 (17:30→18:38)
[2024-04-14] MEDS ORDERED: ALBUMIN HUMAN-25 0.25GM/ML (50ML) VIAL IV SCH ×2 (17:33→18:00)
[2024-04-14] MEDS ORDERED: AMINO ACIDS/PROTEIN HYDROLYS 30 ML BLIST.PACK PO SCH (17:51)
[2024-04-14] MEDS ORDERED: VANCOMYCIN HCL 1,000 MG VIAL IV SCH (19:30)
[2024-04-14 20:12] LABS: ERYTHROCYTE SEDIMENTATION RATE 13 mm/hr; PLT IN CITRATE 70 K/uL (150-450)
[2024-04-14 20:28] LABS: INR 1.88; PARTIAL THROMBOPLASTIN TIME 37.6 SECONDS (22.0-34.0); PROTHROMBIN TIME 18.8 SECONDS (9.0-11.5)
[2024-04-14 21:30] LABS: URINE APPEARANCE Cloudy; URINE BILIRRUBIN Small (NEGATIVE); URINE BLOOD Large; URINE COLOR Dark Yellow; URINE GLUCOSE Negative (NEGATIVE); URINE KETONE Trace (NEGATIVE); URINE LEUKOCYTE Moderate; URINE NITRATE Negative; URINE PROTEIN Trace (NEGATIVE)
[2024-04-14] MEDS ORDERED: MAGNESIUM SULFATE 50% 1,000 MG/2 ML VIAL IV ONE (21:30)
[2024-04-14] MEDS ORDERED: MAGNESIUM SULFATE 50% 1,000 MG/2 ML VIAL ONE (21:31)
[2024-04-14] MEDS ORDERED: VANCOMYCIN HCL 1,000 MG VIAL ONE (21:31)
[2024-04-14 21:33] LABS: URINE BACTERIA 1910.1 uL (0.0-1933); URINE EPITHELIAL CELLS 109.9 uL (0.0-38.8); URINE RBC 686.7 uL (0.0-20.8); URINE WBC 448.3 uL (0.0-23.2)
[2024-04-14 21:50] LABS: URINE CAST > 21.83 uL (0.0-1.40)
[2024-04-14 21:51] LABS: URINE MUCUS SCANT
[2024-04-15] MEDS ORDERED: NOREPINEPHRINE BITARTRATE 1 MG/ML AMPUL IV ONE ×3 (00:23→21:43)
[2024-04-15] MEDS ORDERED: AMIODARONE IN DEXTROSE,ISO-OSM 360 MG/200 ML IV.SOLN IV ONE (00:23)
[2024-04-15 06:53] LABS: HEMATOCRIT 28.7 % (36.0-45.00); HEMOGLOBIN 9.6 g/dL (12.0-15.00); MEAN CELL VOLUME 91.3 fL (80.00-100.00); MEAN CORPUSCULAR HEMOGLOBIN 30.7 pg (27.00-32.0); MEAN CORPUSCULAR HGB CONC 33.6 g/dl (32.0-36.0); RED BLOOD COUNT 3.14 M/uL (4.00-6.00)
[2024-04-15 06:57] LABS: PLATELET COUNT 53 K/uL (150-450)
[2024-04-15] MEDS ORDERED: 0.9 % SODIUM CHLORIDE 250 ML IV STA (07:08)
[2024-04-15 07:21] LABS: ALBUMIN 1.8 gm/dL (3.4-5.0); BILIRUBIN TOTAL 2.08 mg/dL (0.3-1.2); CALCIUM 7.9 mg/dL (8.5-10.1); CREATININE SERUM 1.51 mg/dL (0.55-1.02); GFR 33.41; GLOBULINA 3.7 G/DL (2.4-3.5); PHOSPHOROUS 3.2 mg/dL (2.5-4.9); POTASSIUM 4.11 mEq/L (3.5-5.1); TOTAL PROTEIN 5.5 gm/dL (6.4-8.2)
[2024-04-15 07:26] LABS: C-REACTIVE PROTEIN 17.2 MG/DL (0.00-0.29); MAGNESIUM 1.4 mg/dL (1.8-2.4)
[2024-04-15] MEDS ORDERED: FUROsemide 20 MG/2 ML VIAL IV SCH (09:00)
[2024-04-15] MEDS ORDERED: PANTOPRAZOLE SODIUM 40 MG/VIAL VIAL IV SCH (09:00)
[2024-04-15 09:12] LABS: PROCALCITONIN 3.96 ng/ml (0.020-0.080)
[2024-04-15 09:37] LABS: CORTISOL 34.4 ug/dl
[2024-04-15] MEDS ORDERED: LEVALBUTEROL HCL 0.63 MG/3 ML SOLUTION IH SCH (18:44)
[2024-04-16] MEDS ORDERED: LEVALBUTEROL HCL 0.63 MG/3 ML SOLUTION IH ONE (00:08)
[2024-04-16] MEDS ORDERED: AMIODARONE IN DEXTROSE,ISO-OSM 360 MG/200 ML IV.SOLN IV ONE (05:34)
[2024-04-16] MEDS ORDERED: IRON FUM,PS/FOLIC/BCOMP,C NO.9 1 CAP CAPSULE PO SCH (09:00)
[2024-04-16] MEDS ORDERED: LACTOBACILLUS ACIDOPHILUS 1 CAP CAP PO SCH (09:00)
[2024-04-16] MEDS ORDERED: Cyanocobalamin/Mecobalamin 1 TAB.SL SL SCH (09:00)
[2024-04-16] MEDS ORDERED: FOLIC ACID 1 MG TABLET PO SCH (09:00)
[2024-04-16] MEDS ORDERED: SOD FERRIC GLUC COMPLX/SUCROSE 62.5 MG in 0.9 % SODIUM CHLORIDE 50 ML IV SCH (09:00)
[2024-04-16 13:36] LABS: HEMATOCRIT 27.8 % (36.0-45.00); HEMOGLOBIN 9.2 g/dL (12.0-15.00); MEAN CELL VOLUME 92.1 fL (80.00-100.00); MEAN CORPUSCULAR HEMOGLOBIN 30.5 pg (27.00-32.0); MEAN CORPUSCULAR HGB CONC 33.2 g/dl (32.0-36.0); RED BLOOD COUNT 3.02 M/uL (4.00-6.00); RED CELL DISTRIBUTION WIDTH 19.4 % (11.5-14.5)
[2024-04-16 13:38] LABS: PLATELET COUNT 51 K/uL (150-450)
[2024-04-16 13:47] LABS: ALBUMIN 1.9 gm/dL (3.4-5.0); BILIRUBIN TOTAL 1.22 mg/dL (0.3-1.2); CALCIUM 8.1 mg/dL (8.5-10.1); CREATININE SERUM 1.7 mg/dL (0.55-1.02); GFR 29.14; GLOBULINA 3.3 G/DL (2.4-3.5); POTASSIUM 3.95 mEq/L (3.5-5.1); TOTAL PROTEIN 5.2 gm/dL (6.4-8.2)
[2024-04-16 18:25] LABS: CREATININE SERUM 1.51 mg/dL (0.6-1.0)
[2024-04-17] MEDS ORDERED: AMIODARONE IN DEXTROSE,ISO-OSM 360 MG/200 ML IV.SOLN IV ONE (03:30)
[2024-04-17] MEDS ORDERED: LEVALBUTEROL HCL 0.63 MG/3 ML SOLUTION IH ONE (08:39)
[2024-04-17] MEDS ORDERED: AMIODARONE HCL 200 MG TABLET PO SCH ×2 (16:25→17:00)
[2024-04-18 06:59] LABS: HEMATOCRIT 29.7 % (36.0-45.00); HEMOGLOBIN 10.1 g/dL (12.0-15.00); MEAN CELL VOLUME 89.9 fL (80.00-100.00); MEAN CORPUSCULAR HEMOGLOBIN 30.5 pg (27.00-32.0); MEAN CORPUSCULAR HGB CONC 33.9 g/dl (32.0-36.0); RED BLOOD COUNT 3.31 M/uL (4.00-6.00); RED CELL DISTRIBUTION WIDTH 19.4 % (11.5-14.5)
[2024-04-18 07:08] LABS: PLATELET COUNT 44 K/uL (150-450)
[2024-04-18 07:17] LABS: ERYTHROCYTE SEDIMENTATION RATE 8 mm/hr
[2024-04-18 07:28] LABS: ALBUMIN 1.9 gm/dL (3.4-5.0); BILIRUBIN TOTAL 1.47 mg/dL (0.3-1.2); CREATININE SERUM 2.08 mg/dL (0.55-1.02); GFR 23.09; GLOBULINA 3.6 G/DL (2.4-3.5); POTASSIUM 4.18 mEq/L (3.5-5.1); TOTAL PROTEIN 5.5 gm/dL (6.4-8.2)
[2024-04-18 07:58] LABS: C-REACTIVE PROTEIN 9.33 MG/DL (0.00-0.29)
[2024-04-18] MEDS ORDERED: BUDESONIDE 0.5 MG/2 ML AMPUL.NEB IH SCH (10:58)
[2024-04-18] MEDS ORDERED: METHYLPREDNISOLONE SOD SUCC 40 MG VIAL ONE (11:34)
[2024-04-18] MEDS ORDERED: CLINDAMYCIN PHOSPHATE 900 MG in 0.9 % SODIUM CHLORIDE 100 ML IV SCH (11:46)
[2024-04-18] MEDS ORDERED: METHYLPREDNISOLONE SOD SUCC 40 MG VIAL IV SCH (13:00)
[2024-04-18] MEDS ORDERED: NOREPINEPHRINE BITARTRATE 1 MG/ML AMPUL IV ONE (15:01)
[2024-04-18] MEDS ORDERED: DEXTROSE 5 % IN WATER 1,000 ML IV SCH (15:45)
[2024-04-18] MEDS ORDERED: NOREPINEPHRINE BITARTRATE 8 MG in DEXTROSE 5 % IN WATER 250 ML IV SCH (15:45)
[2024-04-18] MEDS ORDERED: DEXTROSE 50 % IN WATER 0.5 G/ML VIAL IV ONE (15:59)
[2024-04-18] MEDS ORDERED: DEXTROSE 50 % IN WATER 0.5 G/ML VIAL IV STA (16:17)
[2024-04-18] MEDS ORDERED: LACTOBACILLUS ACIDOPHILUS 1 CAP CAP PO SCH (17:00)
[2024-04-18 18:04] LABS: ABG PH 7.408 (7.35-7.45); ABG PO2 60.6 mmHg (80-100); ABG pCO2 32.3 mmHg (35-45); BASE EXCESS -3.6 mmol/l; SaO2 90.8 %; Tco2 20.9 mmol/l; o2 100 %; puncture site RADIAL RIGHT
[2024-04-18 18:05] LABS: allen test SATISFACTORY
== END 2024-04-19 07:46 | disposition expired | DRG 871 ==
LOC: ER 06:10 → SEC-K 17:48 → ICU-2 17:48 → ICU 04-18 17:52
PROVIDERS: General Practice; Internal Medicine; Internal Medicine Infectious Disease; ADMIT Internal Medicine; ATTEND Internal Medicine
PROC: B54CZZZ Ultrasonography of Left Lower Extremity Veins (ICD-10-PCS; principal; 2024-04-14)
PROC: B246ZZZ Ultrasonography of Right and Left Heart (ICD-10-PCS; 2024-04-14)
PROC: BB24ZZZ Computerized Tomography (CT Scan) of Bilateral Lungs (ICD-10-PCS; 2024-04-14)
PROC: 3E0F7GC Introduction of Other Therapeutic Substance into Respiratory Tract, Via Natural or Artificial Opening (ICD-10-PCS; 2024-04-14)
PROC: 4A12X4Z Monitoring of Cardiac Electrical Activity, External Approach (ICD-10-PCS; 2024-04-14)
PROC: CB121ZZ Planar Nuclear Medicine Imaging of Lungs and Bronchi using Technetium 99m (Tc-99m) (ICD-10-PCS; 2024-04-15)
PROC: 02HV33Z Insertion of Infusion Device into Superior Vena Cava, Percutaneous Approach (ICD-10-PCS; 2024-04-15)
PROC: 3E04329 Introduction of Other Anti-infective into Central Vein, Percutaneous Approach (ICD-10-PCS; 2024-04-15)
PROC: 5A09357 Assistance with Respiratory Ventilation, Less than 24 Consecutive Hours, Continuous Positive Airway Pressure (ICD-10-PCS; 2024-04-18)
DX: A41.9 Sepsis, unspecified organism (principal); R65.21 Severe sepsis with septic shock; L03.116 Cellulitis of left lower limb; N39.0 Urinary tract infection, site not specified; I82.422 Acute embolism and thrombosis of left iliac vein; I82.432 Acute embolism and thrombosis of left popliteal vein; I48.20 Chronic atrial fibrillation, unspecified; J90 Pleural effusion, not elsewhere classified; I13.0 Hypertensive heart and chronic kidney disease with heart failure and stage 1 through stage 4 chronic kidney disease, or unspecified chronic kidney disease; N18.4 Chronic kidney disease, stage 4 (severe); N17.9 Acute kidney failure, unspecified; I50.9 Heart failure, unspecified; D69.6 Thrombocytopenia, unspecified; E88.09 Other disorders of plasma-protein metabolism, not elsewhere classified; K74.69 Other cirrhosis of liver; J44.9 Chronic obstructive pulmonary disease, unspecified; E03.9 Hypothyroidism, unspecified; B96.20 Unspecified Escherichia coli [E. coli] as the cause of diseases classified elsewhere; Z74.01 Bed confinement status; Z87.891 Personal history of nicotine dependence; Z88.6 Allergy status to analgesic agent; Z66 Do not resuscitate